=== PATIENT | female | born 1990 | race Caucasian/White ===

== ENCOUNTER 2022-07-02 22:31 | Emergency (ER) | payer SELFPAY ==
[2022-07-02] MEDS ORDERED: ONDANSETRON ODT 4 MG TAB PO STA (23:04)
--- NOTE | 2022-07-02 23:11 | ED ---
Fall HPI - General Chief Complaint: Animal Bite Stated Complaint: dog injury Time Seen by Provider: 07/02/22 22:52 Source: patient, RN notes reviewed Mode of arrival: wheelchair - History of Present Illness Initial Comments: This is a 31-year-old female who presents to the emergency department for a facial injury. Patient is quite confused about the event, but states that she b elieves that her dog may have dragged her outside when she was alone with it tonight. This is a young pitbull and it is up to date on all of its vaccines. She then supposedly walked 2 miles to her aunt's house afterwards. Her aunt's dog started barking and when the family went outside, they found her face down on the concrete. Currently complaining of pain and abrasions to the chin, lip, and arms. Does not believe that the dog bit her, believes that these injuries are from possibly being dragged or falling. She has never had anything like this happen in the past, however she does admit to alcohol use tonight. She is experiencing some associated nausea. Tetanus status is up-to-date. Denies any fevers, chills, sore throat, cough, dyspnea, chest pain, palpitations, abdominal pain, vomiting, diarrhea, or back pain. MD Complaint: fall - Related Data Allergies Allergy/AdvReac Type Severity Reaction Status Date / Time gluten Allergy Nausea & Verified 07/02/22 22:37 Vomiting & Diarrhea wheat Allergy Nausea & Verified 07/02/22 22:37 Vomiting & Diarrhea Review of Systems ROS Statement: Those systems with pertinent positive or pertinent negative responses have been documented in the HPI. ROS Other: All systems not noted in ROS Statement are negative. Past Medical History Past Medical History: No Reported History History of Any Multi-Drug Resistant Organisms: None Reported Past Surgical History: Cholecystectomy, Tonsillectomy Past Psychological History: No Psychological Hx Reported Smoking Status: Never smoker Past Alcohol Use History: Occasional Past Drug Use History: None Reported General Exam Limitations: no limitations General appearance: alert, in no apparent distress Head exam: Present: other (Abrasion and active bleeding at the bottom of the chin and swelling to the left side of the upper lip.) Eye exam: Present: normal appearance, PERRL, EOMI. Absent: scleral icterus, conjunctival injection, periorbital swelling Respiratory exam: Present: normal lung sounds bilaterally. Absent: respiratory distress, wheezes, rales, rhonchi, stridor Cardiovascular Exam: Present: regular rate, normal rhythm, normal heart sounds. Absent: systolic murmur, diastolic murmur, rubs, gallop, clicks Neurological exam: Present: alert, oriented X3, CN II-XII intact Psychiatric exam: Present: normal affect, normal mood Course Vital Signs 07/03/22 03:10 Temperature 98.6 F Pulse Rate 761 H Respiratory 14 Rate Blood Pressure 96/58 O2 Sat by Pulse 96 Oximetry Medical Decision Making - Medical Decision Making This is a 22-year-old female who presents to the emergency department for a head injury. Was pt. sent in by a medical professional or institution? @ -No Did you speak to anyone other than the patient for history? @ -Her mother Did you review nursing and triage notes? @ -No, patient denies actually being bit. Were old charts reviewed? @ -No Differential Diagnosis? @ -Differential Diagnosis Head Injury: Contusion, hematoma, intracranial hemorrhage, skull fracture, whiplash, concussion, this is not meant to be an all-inclusive list. CT interpreted by me (1pt min.)? @ -Computed tomography scan of the brain and facial bones obtained. My interpretation identifies no evidence of any facial or skull fractures or intracranial hemorrhage. What testing was considered but not performed? (CT, X-rays, U/S, labs)? Why? @ -None What meds were considered but not given? Why? @ -None Did you discuss the management of the patient with other professionals? @ -No Did you reconcile home meds? @ -No Was smoking cessation discussed for >3mins.? @ -No Was critical care preformed (if so, how long)? @ -No Were there social determinants of health that impacted care today? How? (Homelessness, low income, unemployed, alcoholism, drug addiction, transportation, low edu. Level, literacy, decrease access to med. care, assisted, rehab)? @ -No Was there de-escalation of care discussed even if they declined? (Discuss DNR or withdrawal of care, Hospice)? @ -No What co-morbidities impacted this encounter? (DM, HTN, Smoking, COPD, CAD, Cancer, CVA, Hep., AIDS, mental health diagnosis, sleep apnea, morbid obesity)? @ -None Was patient admitted / discharged? @ -Discharged. Computed tomography scan of the brain and facial bones obtained revealing no acute findings. She was initially given Zofran for the nausea and LET was applied to the chin injury to help with bleeding and discomfort. Given the confusion surrounding the event, I offered to obtain blood work, however the patient declined. She did have a large wound to the chin and left side of the upper lip. I did attempt to clean this, however she refused to have it cleaned or closed with any mechanism such as sutures, exofin, or Steri-Strips despite my strongest recommendations. Because she could not tolerate cleaning the wound very well, I was unable to determine exactly how deep the wounds were. She was given Toradol and ice was applied to the face, however she continued to be uncomfortable. Due to the alcohol consumption and patient still being somewhat confused, stronger pain medication was avoided. I did give her a pack a Steri- Strips to go home with so she can clean this off herself at home. She was discharged in stable condition into the care of her mother. Advised ibuprofen and Tylenol as needed at home for discomfort and applying ice to the affected areas for 10-15 minutes every 2-3 hours. Undiagnosed new problem with uncertain prognosis? @ -None Drug Therapy requiring intensive monitoring for toxicity (Heparin, Nitro, Insulin, Cardizem)? @ -None Were any procedures done? @ -None Diagnosis/symptom? @ -Head injury, intoxication Acute, or Chronic, or Acute on Chronic? @ -Acute Uncomplicated (without systemic symptoms) or Complicated (systemic symptoms)? @ -Uncomplicated Side effects of treatment? @ -None Exacerbation, Progression, or Severe Exacerbation] @ -Not applicable Poses a threat to life or bodily function? @ -No Return precautions reviewed in depth, the patient is instructed to return to the emergency department with any new, worsening, or concerning symptoms. Patient verbalized understanding. This case was discussed in detail with the attending ED physician, Dr. Ratliff. Presentation, findings, and treatment plan discussed in detail as well. - Radiology Data Radiology results: report reviewed, image reviewed Disposition Clinical Impression: Head injury, Alcohol use Disposition: HOME SELF-CARE Instructions (If sedation given, give patient instructions): Head Injury (ED), Steristrips (ED) Additional Instructions: Return to the emergency department with any new, worsening, or concerning symptoms. Alternate with ibuprofen and Tylenol as needed for pain relief. Apply ice to the chin and lip area for 10-15 minutes every 2-3 hours. Try to clean out the wound and use Steri-Strips if needed when you get home. Follow up with your primary care provider in 1-2 days. Is patient prescribed a controlled substance at d/c from ED?: No Referrals: None,Stated [Primary Care Provider] - 1-2 days
--- NOTE | 2022-07-02 23:41 | CT ---
EXAMINATION TYPE: CT brain wo con CT DLP: 660 mGycm, Automated exposure control for dose reduction was used. DATE OF EXAM: 07/02/2022 11:36 PM COMPARISON: None. CLINICAL INDICATION:Female, 31 years old with history of Head injury, animal bite to face. positive l oc TECHNIQUE: Brain: Multiple axial CT images of the brain were obtained without IV contrast. Coronal and sagittal reformats reviewed. FINDINGS: Brain: Extra-axial spaces: No abnormal extra-axial fluid collections. Ventricular system: Within normal limits Cerebral parenchyma: No acute intraparenchymal hemorrhage or mass effect. The jain-white junction is well differentiated. Cerebellum: Unremarkable. Mass effect: No evidence of midline shift. Intracranial vasculature: unremarkable Soft tissues: Normal. No radiopaque foreign body identified. Calvarium/osseous structures: No depressed skull fracture. Paranasal sinuses and mastoid air cells: Clear Visualized orbits: Orbital contents are intact. IMPRESSION: No acute intracranial process.
--- NOTE | 2022-07-02 23:43 | CT ---
EXAMINATION TYPE: CT facial bones wo con CT DLP: 1320 mGycm, Automated exposure control for dose reduction was used. DATE OF EXAM: 07/02/2022 11:36 PM COMPARISON: CT head of the same date.. CLINICAL INDICATION:Female, 31 years old with history of Head injury; PHH, animal bite to face TECHNIQUE: Multiple unenhanced axial CT images were obtained of the facial bones soft tissue and bone windows. Coronal, axial and sagittal reformatted images were also provided in soft tissue and bone windows and submitted for interpretation. FINDINGS: There is no evidence of fracture, subluxation or dislocation. Moderate soft tissue edema of the anter ior chin with single focus of gas likely representing laceration. No radiopaque foreign body. The orb ital contents are unremarkable. The temporal-mandibular joints appear symmetric. The visualized porti on of the paranasal sinuses appear clear. IMPRESSION: 1. No acute facial bone fracture. 2. Moderate soft tissue edema of the anterior chin with single focus of gas likely representing lacer ation. No radiopaque foreign body.
[2022-07-02] MEDS ORDERED: LIDOCAINE/EPINEPHR/TETRACAINE 5 ML BOTTLE TOPICAL ONE (23:55)
[2022-07-03] MEDS ORDERED: SODIUM CHLORIDE 0.9% 1,000 ML IV ONE (00:52)
[2022-07-03] MEDS ORDERED: KETOROLAC 15 MG/ML 1 ML VIAL IM STA (01:24)
[2022-07-03] MEDS ORDERED: TOPICAL SKIN ADHESIVE 1 EACH AMP TOPICAL ONE (02:37)
[2022-07-03] MEDS ORDERED: ONDANSETRON 4 MG ODT STARTER PACK 2 TAB BTL PO STA (03:01)
[2022-07-03] MEDS ORDERED: ACET/COD 300 MG/30 MG STARTER PACK 6 TAB BTL PO STA (03:01)
[2022-07-03] MEDS ORDERED: IBUPROFEN 600 MG STARTER PACK 4 TAB BTL PO STA (03:01)
[2022-07-03 03:11] VITALS: BP 96/58; PULSE 761; TEMP 98.6
[2022-07-03 03:14] VITALS: RESP 14
== END 2022-07-03 03:24 | disposition home or self-care (01) ==
LOC: EC 22:31
DX: S09.90XA Unspecified injury of head, initial encounter (principal); S00.81XA Abrasion of other part of head, initial encounter; R22.31 Localized swelling, mass and lump, right upper limb; Z91.018 Allergy to other foods; W54.0XXA Bitten by dog, initial encounter
CPT/HCPCS: 70450; 70486; 96372; 99283